=== PATIENT | female | born 1975 | race Caucasian/White ===

== ENCOUNTER 2017-09-01 10:45 | Day surgery (SDC) | payer MEDICAID ==
[2017-09-01] MEDS ORDERED: Acetaminophen 500 MG TAB PO SCH (11:30)
[2017-09-01] MEDS ORDERED: diphenhydrAMINE 25 MG CAP PO SCH (11:30)
[2017-09-01] MEDS ORDERED: Sodium Chloride 0.9% 20 ML ONE (12:25)
[2017-09-01 18:11] VITALS: BP 111/68; TEMP 98.1
[2017-09-01 19:26] LABS: Anisocytosis SLIGHT = 6-15 cells (100X) (0-5/hpf); Band 6 % (5-11); Hematocrit 26.4 % (36.0-47.0); Neutrophil 58 % (42-75); Red Blood Cell (RBC) Count 3.14 mill/uL (4.20-5.40); White Blood Cell (WBC) Count 1.3 thou/uL (4.8-10.8)
== END 2017-09-01 18:23 | disposition home or self-care (01) ==
LOC: MERGE 10:45 → ONC/OP 10:45
PROVIDERS: ATTEND Internal Medicine Hematology & Oncology
PROC: 30233N1 Transfusion of Nonautologous Red Blood Cells into Peripheral Vein, Percutaneous Approach (ICD-10-PCS; principal; 2017-09-01)
DX: D64.9 Anemia, unspecified (principal); D69.6 Thrombocytopenia, unspecified; C53.9 Malignant neoplasm of cervix uteri, unspecified
CPT/HCPCS: 36430; 85025; 85060; 86850; 86900; 86901; A4216; J1642; P9016

== ENCOUNTER 2017-09-02 11:30 | Outpatient (CLI) | payer MEDICAID ==
--- NOTE | 2017-09-02 14:30 | RAD ---
TWO VIEW CHEST: HISTORY: Cervical cancer. Preop evaluation. FINDINGS: The lungs are clear. The Mediport catheter has the tip overlying the SVC. The heart and mediastinu m are unremarkable. The osseous structures are unremarkable. IMPRESSION: Unremarkable chest. POS: [facility]
== END 2017-09-02 11:31 | disposition home or self-care (01) ==
LOC: RAD 11:30
PROVIDERS: ATTEND Radiology Radiation Oncology
DX: C53.0 Malignant neoplasm of endocervix (principal)
CPT/HCPCS: 71020

== ENCOUNTER 2018-01-01 10:52 | Day surgery (SDC) | payer BC ==
[2018-01-01] MEDS ORDERED: Midazolam HCl 2 mg/2 ml Vial ONE (11:49)
[2018-01-01] MEDS ORDERED: Fentanyl 100 MCG/2 ML VIAL ONE (11:50)
[2018-01-01] MEDS ORDERED: HYDROmorphone 0.5 MG/0.5 ML SYRINGE ONE (13:09)
[2018-01-01] MEDS ORDERED: HYDROcodone/Acetaminophen 5/325 mg Tablet ONE (13:36)
--- NOTE | 2018-01-01 14:06 | MRI ---
MRI LUMBAR SPINE NONCONTRAST: HISTORY: Low back pain. M47.817. FINDINGS: Conus medullaris has a normal appearance. Vertebral body height and alignment are maintained. Bone marrow signal is within normal limits. T12-L1, L1-2, L2-3, L3-4: Central canal and neural foramen are patent. Disk hydration is maintained . L4-5: Disk desiccation and disk space narrowing. Minimal retrolisthesis. Posterior disk bulge michael g with circumferential degenerative changes result in mild stenosis of the central canal. L5-S1: Disk space narrowing, desiccation of the disk, and minimal degenerative retrolisthesis. Thor acic spine and neural foramen remain patent. IMPRESSION: Mild degenerative changes lower lumbar spine without focal disk herniation or nerve root compression. POS: [facility]
== END 2018-01-01 14:00 | disposition home or self-care (01) ==
LOC: EEVIPCON 10:52 → SDC/OP 10:52
PROVIDERS: ATTEND Anesthesiology
DX: M51.36 Other intervertebral disc degeneration, lumbar region (principal); M47.817 Spondylosis without myelopathy or radiculopathy, lumbosacral region; M46.1 Sacroiliitis, not elsewhere classified
CPT/HCPCS: 72148; J1170; J2250; J3010

== ENCOUNTER 2018-01-28 12:44 | Outpatient (CLI) | payer BC, MEDICAID ==
--- NOTE | 2018-01-28 16:01 | PET ---
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 COMPARISON: None. CORRELATION: CT abdomen and pelvis dated 01/19/18. FINDINGS: There is hypermetabolic activity in the cervical mass with a SUV of 13.3. There is greg hypermetabol ism in the pelvis involving the right common iliac (SUV 6.9), right internal iliac (SUV 13.3), left i nternal iliac (SUV 10.6), and left obturator (SUV 9.2) lymph nodes. No greg hypermetabolism is seen in the neck, chest, axilla, or abdomen. No hypermetabolic pulmonary nodules, liver, adrenal, or skeletal lesions are identified. There is physiologic activity in the GI and tracts, and visualized portions of the brain. The CT scan used for attenuation correction demonstrates no evidence of pleural effusions or ascites. IMPRESSION: Cervical malignancy with pelvic lymph greg metastases. POS: [facility]
== END 2018-01-28 12:45 | disposition home or self-care (01) ==
LOC: MERGE 12:44 → PET 12:44
PROVIDERS: ATTEND Internal Medicine Hematology & Oncology
DX: C53.9 Malignant neoplasm of cervix uteri, unspecified (principal); C77.5 Secondary and unspecified malignant neoplasm of intrapelvic lymph nodes
CPT/HCPCS: 78815; A9552

== ENCOUNTER 2018-02-09 12:12 | Day surgery (SDC) | payer BC ==
[2018-02-09] MEDS ORDERED: HYDROmorphone 0.5 MG/0.5 ML SYRINGE ONE ×7 (13:11→16:19)
--- NOTE | 2018-02-09 15:00 | MRI ---
MRI OF THE RIGHT KNEE: DATE: 02/09/18. PROVIDED CLINICAL HISTORY: Right knee pain status post status post injury. FINDINGS: The anterior cruciate ligament, posterior cruciate ligament, medial collateral ligament, and lateral collateral ligamentous complex demonstrate an intact MR appearance, as does the extensor mechanism. The medial and lateral menisci demonstrate no evidence for tear. No focal articular cartilage defect is apparent. The amount of fluid within the knee joint appears physiologic. There is noncircumscribed fluid signal intensity seen within the subcutaneous adipose layer anterior to the knee. There is patchy fluid signal intensity present within the proximal soleus muscle and, to a lesser ext ent, lateral head of the gastrocnemius and medial head of gastrocnemius muscles. Regional marrow and muscular signal appear otherwise unremarkable. IMPRESSION: 1. No evidence for internal derangement. 2. Patchy signal alteration involving the soleus and gastrocnemius musculature proximally may reflec t muscular strain, denervation, or myositis. 3. Nonspecific noncircumscribed fluid signal intensity within the subcutaneous adipose layer. This may reflect bruising or edema. Correlation with concerns for cellulitis recommended. POS: [facility]
[2018-02-09] MEDS ORDERED: Ketamine 50 MG/ML VIAL ONE (16:38)
[2018-02-09] MEDS ORDERED: Gabapentin 300 MG CAP PO SCH (17:30)
[2018-02-09] MEDS ORDERED: fentaNYL 100 mcg/hour Patch TD SCH (17:30)
== END 2018-02-09 18:25 | disposition home or self-care (01) ==
LOC: SDC/OP 12:12
PROVIDERS: ATTEND Family Medicine Sports Medicine
DX: S83.281A Other tear of lateral meniscus, current injury, right knee, initial encounter (principal); C53.9 Malignant neoplasm of cervix uteri, unspecified; Z79.818 Long term (current) use of other agents affecting estrogen receptors and estrogen levels; Z79.899 Other long term (current) drug therapy; Z87.891 Personal history of nicotine dependence
CPT/HCPCS: 96374; J1170